=== PATIENT | male | born 1975 | race African-American/Black ===

== ENCOUNTER 2018-02-07 21:46 | Emergency (ER) | payer BC, SELFPAY ==
--- NOTE | 2018-02-07 23:41 | RAD ---
THREE VIEWS LUMBAR SPINE: 02/07/18 HISTORY: Pain. COMPARISON: None. FINDINGS: There are five lumbar type vertebral bodies. Vertebral body height is maintained. Disc space heights are preserved. No fracture. IMPRESSION: Unremarkable lumbar spine three views. POS: EMANUEL
[2018-02-07] MEDS ORDERED: Naproxen 500 MG TAB ONE (23:55)
== END 2018-02-08 00:17 | disposition home or self-care (01) ==
LOC: ERS 21:46
DX: M54.42 Lumbago with sciatica, left side (principal); I10 Essential (primary) hypertension
CPT/HCPCS: 72100